=== PATIENT | female | born 1945 | race Asian ===

== ENCOUNTER 2023-04-03 15:59 | Emergency (ER) | payer MEDICARE ==
[~2023-04-03] VITALS: Ht 157.5 cm; Wt 73.0 kg
[2023-04-03 16:27] VITALS: BP 166/74; PULSE 69; RESP 16; TEMP 98.3
[2023-04-03 16:51] LABS: EOSINOPHILS % 2.1 % (0.0-5.0); HEMATOCRIT. 39.7 % (36.0-48.0); HEMOGLOBIN. 13.4 g/dL (12.0-16.0); LYMPHOCYTES % 26.7 % (20.0-50.0); MEAN CORPUSCULAR HEMOGLOBIN 29.7 pg (28.0-32.0); MEAN CORPUSCULAR VOLUME 88.3 fL (81.0-99.0); MEAN PLATELET VOLUME 8.1 fl (7.4-10.4); NEUTROPHILS % 62.2 % (40.0-76.0); PLATELET 302 x1000/uL (130-400); RED CELL DISTRIBUTION WIDTH 13.8 % (11.6-14.6)
[2023-04-03 16:59] LABS: PROTHROMBIN TIME 10.3 sec (9.6-11.0)
[2023-04-03 17:02] LABS: CHLORIDE 98 mEq/L (98-107)
== END 2023-04-03 21:47 | disposition left against medical advice (07) ==
LOC: ER 16:16
DX: Z53.21 Procedure and treatment not carried out due to patient leaving prior to being seen by health care provider (principal)
CPT/HCPCS: 36415; 71045; 80053; 83880; 84484; 85025; 93005; 99281